=== PATIENT | female | born 2005 | race Caucasian/White ===

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

== ENCOUNTER 2024-02-18 02:22 | Emergency (ER) | payer BC, SELFPAY ==
[2024-02-18 02:31] VITALS: BP 137/82; PULSE 93; RESP 18; TEMP 37; O2SAT 100; BMI 28.2
--- NOTE | 2024-02-18 02:56 | ED.GENADULT ---
HPI - General Adult General Chief complaint: Sore Throat Stated complaint: Swollen throat Time Seen by Provider: 02/18/24 02:44 Source: patient Mode of arrival: ambulatory Limitations: no limitations History of Present Illness HPI narrative: 18-year-old female presents the emergency department because she states that she is unable to swallow her own saliva. She was diagnosed 36 hours ago with mono. Sounds like it was in an emergency department in [place]. She was given what sounds like a L of IV fluids and a dose of dexamethasone. She reports that symptoms have been stable but that she is unable to swallow and the pain is bothersome. She cannot get down any liquids. Denies breathing difficulty. She is not immunocompromised. No fevers today. No new trauma or changes to her medical history. Urgent care note from last week reviewed. Past medical history benign, only home medication is her Kyleena IUD. Nonsmoker. ROS notable for the HEENT symptoms as described above, otherwise denies times 12 systems. Related Data Previous Rx's ?Medication ?Instructions ?Recorded escitalopram oxalate 10 mg tablet 10 mg PO QDAY #30 tabs 12/29/23 (Lexapro) Allergies Allergy/AdvReac Type Severity Reaction Status Date / Time No Known Allergies Allergy Unknown Verified 02/15/24 12:54 [facility] Medical History Generalized anxiety disorder ?F41.1 - Generalized anxiety disorder (ICD-10) Exercise-induced bronchospasm ?J45.990 - Exercise induced bronchospasm (ICD-10) Depression (~2020) ?F32.A - Depression, unspecified (ICD-10) Exertional chest pain ?R07.9 - Chest pain, unspecified (ICD-10) Abdominal pain ?R10.9 - Unspecified abdominal pain (ICD-10) Surgical History No history of previous surgery Family History Mother Breast cancer, Onset Age: 30 Anxiety and depression ADHD Maternal Grandmother Breast cancer, Onset Age: 70 Aunt Anxiety and depression Family/Other Anxiety and depression Father Diabetes Social History Narrative: Single, 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, no kids Lifetime nonsmoker Rare alcohol use No drug use Exercise 6 times a week weightlifting and cardio 60 minutes or more What is your current living situation?: I presently have a place to live Problems where you live: declined to answer In the past 12 months, utilities in danger of being shut off: no In past 12 months, lack of transportation kept you from medical appts, meetings, work, or getting things needed for daily living: no In the past 12 mos, have been you worried that your food would run out before you had money to buy more?: never true In the past 12 mos, the food you bought just didn't last and you didn't have money to buy more?: declined to answer Smoking Status: Never smoker How often do you have a drink containing alcohol: never AUDIT-C Alcohol total score: 0 Non-prescribed substance use: denies use How often does anyone, including family, friends and others, physically hurt you: never How often does anyone, including family, friends and others, insult or talk down to you: sometimes How often does anyone, including family, friends and others, threaten you with harm: never How often does anyone, including family, friends and others, scream or curse at you: frequently Little interest or pleasure in doing things: several days Feeling down, depressed, or hopeless: several days Exam Const: Vital Signs, click to edit/add: Vital Signs - 24 hr 02/18/24 02:31 02/18/24 03:47 02/18/24 03:48 Temperature 98.6 F 98.6 F 98.6 F Pulse Rate [Pulse Oximeter] 93 87 87 Respiratory Rate 18 18 18 Blood Pressure [Le ft Upper Arm] 137/82 125/74 125/74 Pulse Oximetry 100 100 Oxygen Delivery Me thod Room Air Room Air Documenting provider has reviewed patient's vital signs: yes Common normals: no apparent distress General appearance: cooperative Other: Hot potato voice, does appear well hydrated. Friendly and cooperative. HENMT: Common normals: normocephalic and head/scalp atraumatic Head and scalp: normocephalic and atraumatic Other: Tonsillar pillars are exquisitely red, 3+ but she does still have at least 2 cm of space between her tonsils, throat is not closed. Uvula is mildly swollen but again, space is certainly present. Mucosa is moist. Eye: Other: Conjunctiva injected, no exudate. Neck & C-Spine: Other: Moderate anterior cervical and submandibular lymphadenopathy. Resp: Common normals: normal respiratory effort, no use of accessory muscles and clear to auscultation bilaterally Effort & inspection: able to speak in complete sentences Auscultation: clear to auscultation bilaterally Cardio: Common normals: regular rate, regular rhythm, S1 normal heart sound, S2 normal heart sound and no murmurs Rate: regular rate Rhythm: regular rhythm Heart sounds: S1 normal and S2 normal Neuro: Gait (neuro): normal gait Motor exam: no movement abnormalities noted Psych: Attitude: engaged Activity/motor behavior: appropriate eye contact Insight: insight good Judgement: judgment good Skin: Common normals: no rashes or lesions noted General skin exam: no rashes or lesions noted Course Course ED Course: 18-year-old female with mono and no signs of impending airway closure. Her risk for dehydration. Unable to swallow due to pain but no signs of obstruction. Recommended 1 L normal saline, repeat dose of dexamethasone since it has been 36 hours. She would like to be able to drive herself home, therefore will do some oxycodone from in stay meds. Will give Toradol here in the ED as well. Alarm symptoms reviewed, should be a lot better in about 48 hours. Continue to push fluids. Follow-up if still unable to swallow after 24 more hours. Vital Signs Vital signs: Initial Vital Signs Temperature 98.6 F 02/18/24 02:31 Temperature Source Temporal Artery Scan 02/18/24 02:31 Pulse Rate 93 02/18/24 02:31 Respiratory Rate 18 02/18/24 02:31 Blood Pressure 137/82 02/18/24 02:31 Blood Pressure Mean 100 02/18/24 02:31 Blood Pressure Position Sitting 02/18/24 02:31 Pulse Oximetry 100 02/18/24 02:31 Oxygen Delivery Method Room Air 02/18/24 02:31 Vital Signs Temperature 98.6 F 02/18/24 02:31 Pulse Rate 93 02/18/24 02:31 Respiratory Rate 18 02/18/24 02:31 Blood Pressure 137/82 02/18/24 02:31 Pulse Oximetry 100 02/18/24 02:31 Oxygen Delivery Method Room Air 02/18/24 02:31 Temperature 98.6 F 02/18/24 03:48 Pulse Rate 87 02/18/24 03:48 Respiratory Rate 18 02/18/24 03:48 Blood Pressure 125/74 02/18/24 03:48 Pulse Oximetry 100 02/18/24 03:47 Oxygen Delivery Method Room Air 02/18/24 03:47 Medications Administered Medications: Discontinued Medications Generic Name Dose Route Start Last Admin Trade Name Marylu PRN Reason Stop Dose Admin Dexamethasone 10 mg 02/18/24 02:54 02/18/24 02:58 Dexamethasone 10 Mg/Ml Inj IVP 02/18/24 02:55 10 mg ONCE ONE Administration Sodium Chloride 1,000 mls @ 1,000 mls/hr 02/18/24 02:54 02/18/24 03:48 0.9 % Sodium Chloride 1000 Ml IV 02/18/24 03:53 Infused .Q1H LAI Infusion Ketorolac Tromethamine 15 mg 02/18/24 02:54 02/18/24 02:58 Ketorolac 15 Mg/Ml Inj IVP 02/18/24 02:55 15 mg ONCE ONE Administration Discharge Plan Discharge Clinical Impression: Mononucleosis Patient Disposition: Home, Self-Care Condition: Stable Instructions: Mononucleosis (ED) Additional Instructions: Your sore throat looks rather miserable but thankfully, there are no signs of obstruction. You can physically swallow even though I would understand that it is exquisitely painful. Your given a L of IV fluid here in the emergency department there and dehydration and also another dose of dexamethasone. This is a steroid that will last in your system for the next couple of days and help reduce inflammation and swelling somewhat. Continue using Tylenol and ibuprofen, switching to chewable or liquid if you need to but remembering the proper dosing is a 1000 mg of Tylenol every 6 hours and or 600 mg of ibuprofen every 6 hours. I will also give you a limited supply of oxycodone. This is a stronger pain medicine that may help relieve the sore throat somewhat so that you are more able to chew and swallow. Continue to push fluids as you are best able. Things really should be at least a little bit better within 48 hours. If you are still unable to hold down any liquids at all in 24 hours, I would recommend a follow-up visit. Activity Level: Activity as Tolerated Discharge Diet: Regular Prescriptions: No Action escitalopram oxalate [Lexapro] 10 mg tablet 10 mg PO QDAY Qty: 30 0RF Follow Up/Referrals: Gale Dela Cruz MD [Primary Care Provider] - Stand Alone Forms: [employer] Info Instructions
[2024-02-18] MEDS: KETOROLAC 15 MG/ML inj IVP (02:58)
[2024-02-18] MEDS: 0.9 % SODIUM CHLORIDE 1000 ml 1,000 ML IV (02:58)
[2024-02-18] MEDS: dexAMETHasone 10 MG/ML inj IVP (02:58)
[2024-02-18 03:47] VITALS: BP 125/74; PULSE 87; RESP 18; TEMP 37; O2SAT 100
[2024-02-18 03:48] VITALS: BP 125/74; PULSE 87; RESP 18; TEMP 37
== END 2024-02-18 03:49 | disposition home or self-care (01) ==
PROVIDERS: Emergency Provider Family Medicine; PCP Family Medicine
DX: B27.90 Infectious mononucleosis, unspecified without complication (principal)
CPT/HCPCS: 96374; 96375; 99283; J1100; J1885; J7030